=== PATIENT | male | born 1960 | race Caucasian/White ===

== ENCOUNTER 2018-01-02 17:36 | Emergency (ER) | payer OTHER ==
[~2018-01-02] VITALS: Ht 177.8 cm; Wt 81.7 kg
[~2018-01-02 17:36] MED LIST: BLEPH-105 ML OPHTHALMIC; NAPHCON-A EYE D15 ML INTRAOCULR; PREDNISONE 20 M20 MG PO; ZYRTEC10 M2 PO
[2018-01-02] MEDS ORDERED: CLOZAPINE50 MG PO (17:53)
[2018-01-02] MEDS ORDERED: ATIVAN0.5 MG PO (17:54)
[2018-01-02] MEDS ORDERED: VITAMIN D3400 UNIT PO (17:54)
[2018-01-02] MEDS ORDERED: ZYPREXA ZYDIS5 MG PO (17:55)
[2018-01-02] MEDS ORDERED: OLANZAPINE5 M1 PO (17:55)
[2018-01-02] MEDS ORDERED: LORAZEPAM 1 MG T1 MG PO (17:56)
[2018-01-02] MEDS ORDERED: CLOZAPINE200 MG PO (17:57)
[2018-01-02] MEDS ORDERED: TYLENOL325 MG PO (17:57)
[2018-01-02] MEDS ORDERED: REMERON15 MG PO (17:57)
[2018-01-02 19:32] VITALS: BP 126/84
== END 2018-01-02 19:34 | disposition home or self-care (01) ==
LOC: ER 17:36
DX: S01.81XA Laceration without foreign body of other part of head, initial encounter (principal); I10 Essential (primary) hypertension; Z88.8 Allergy status to other drugs, medicaments and biological substances; Y04.8XXA Assault by other bodily force, initial encounter; Y93.89 Activity, other specified; Y92.89 Other specified places as the place of occurrence of the external cause; Y99.8 Other external cause status